=== PATIENT | female | born 1950 | race Caucasian/White ===

== ENCOUNTER 2021-04-26 09:59 | Emergency (ER) | payer MEDICARE ==
[~2021-04-26] VITALS: Ht 157.5 cm; Wt 81.6 kg
[2021-04-26] MEDS ORDERED: IBUPROFEN 600 MG TAB PO STA (10:28)
== END 2021-04-26 10:57 | disposition home or self-care (01) ==
LOC: ER 10:25
DX: U07.1 COVID-19 (principal); R50.9 Fever, unspecified; R06.02 Shortness of breath; I10 Essential (primary) hypertension; E11.9 Type 2 diabetes mellitus without complications
CPT/HCPCS: 99283